=== PATIENT | male | born 1975 | race Caucasian/White ===

== ENCOUNTER → 2017-06-21 | Outpatient (CLI) | payer OTHER ==
--- NOTE | 2017-06-21 16:57 | KCIC ---
ELBOW BILAT 3V Indication: Pain at the lateral side of the right elbow for one year. No known injury. . Comparison: No comparison is available. FINDINGS: No evidence of an acute fracture. Joint spaces are intact. No significant soft tissue abnormality. IMPRESSION: No evidence of acute radiographic abnormality. If further workup is warranted, consider MR of the elbow. Electronically signed by: Abdelrahman Suresh MD (06/21/2017 4:54 PM) [id number]
== END | disposition home or self-care (01) ==
LOC: KCIC 15:11
DX: M25.521 Pain in right elbow (principal)
CPT/HCPCS: 73080